=== PATIENT | female | born 1980 | race Caucasian/White ===

== ENCOUNTER 2021-02-18 19:59 | Emergency (ER) | payer OTHER ==
[~2021-02-18] VITALS: Ht 170.2 cm; Wt 90.1 kg
[2021-02-18] MEDS ORDERED: LIDOCAINE 1% MDV 20ML VIAL SC ONE (23:35)
[2021-02-19] MEDS ORDERED: BOOSTRIX/ADACEL VACCINE (DIPHTH/PERTUSS/ACELL/TETANUS) 0.5ML SYR IM ONE (00:40)
[2021-02-19 00:56] VITALS: BP 146/73
== END 2021-02-19 01:07 | disposition home or self-care (01) ==
LOC: M ED 19:59
DX: S61.211A Laceration without foreign body of left index finger without damage to nail, initial encounter (principal); W26.8XXA Contact with other sharp object(s), not elsewhere classified, initial encounter; Y92.098 Other place in other non-institutional residence as the place of occurrence of the external cause; Y93.G1 Activity, food preparation and clean up; Y99.8 Other external cause status; Z87.891 Personal history of nicotine dependence

== ENCOUNTER → 2022-12-14 | Outpatient (CLI) | payer OTHER | LOC: M RAD 09:34 | PROVIDERS: ATTEND Obstetrics & Gynecology | DX: N94.6 Dysmenorrhea, unspecified (principal) ==

== ENCOUNTER 2023-02-15 06:03 | Observation (INO) | payer OTHER ==
[~2023-02-15] VITALS: Ht 170.2 cm; Wt 85.2 kg
[~2023-02-15 06:03] MED LIST: GABAPENTIN 300 MG CAP PO ONE; IRON1TAB2 PO; VITMTA PO; ceFAZolin SOD 2 GM in IV 1 EA IV ONE
[2023-02-15] MEDS ORDERED: LR 1,000 ML IV SCH (06:30)
[2023-02-15 06:52] LABS: HEMATOCRIT 38.6 % (36.0-47.0); HEMOGLOBIN 12.2 g/dl (12.0-15.5); MEAN CORPUSCULAR HEMOGLOBIN 22.7 pg (27.0-33.0); MEAN CORPUSCULAR HGB CONC 31.6 g/dl (32.0-36.5); MEAN CORPUSCULAR VOLUME 71.9 fl (80.0-96.0); PLATELET COUNT, AUTOMATED 335 10^3/uL (150-450); RED BLOOD COUNT 5.37 10^6/uL (4.00-5.40); WHITE BLOOD COUNT 10.1 10^3/uL (4.0-10.0)
[2023-02-15] MEDS ORDERED: BUPIVACAINE HCL 0.25% 30ML VIAL As Ordered ONE (07:16)
[2023-02-15] MEDS ORDERED: fentaNYL 250 MCG/5 ML INJECTION As Ordered ONE (07:17)
[2023-02-15] MEDS ORDERED: LIDOCAINE 2% 100MG/5ML SDV (FOR ANES.) As Ordered ONE (07:17)
[2023-02-15] MEDS ORDERED: propofoL 200 MG/20 ML VIAL As Ordered ONE (07:17)
[2023-02-15] MEDS ORDERED: MIDAZOLAM INJ 2MG/2ML VIAL As Ordered ONE (07:17)
[2023-02-15] MEDS ORDERED: ROCURONIUM BROMIDE 50MG/5ML VIAL As Ordered ONE ×2 (07:17→08:23)
[2023-02-15 07:20] LABS: ALBUMIN 4.1 G/DL (3.2-5.2); ALKALINE PHOSPHATASE 40 U/L (46-116); ALT/SGPT 11 U/L (7.0-40); AST/SGOT 14 U/L (<34); BILIRUBIN,TOTAL 0.8 MG/DL (0.3-1.2); BLOOD UREA NITROGEN 8 MG/DL (9-23); CALCIUM LEVEL 9.5 MG/DL (8.5-10.1); CARBON DIOXIDE LEVEL 24 MMOL/L (20-31); CHLORIDE LEVEL 106 MMOL/L (98-107); CREATININE FOR GFR 0.56 MG/DL (0.55-1.30); GLOMERULAR FILTRATION RATE > 60.0 (>58); GLUCOSE, FASTING 96 MG/DL (60-100); POTASSIUM SERUM 4.5 MMOL/L (3.5-5.1); SODIUM LEVEL 140 MMOL/L (136-145); TOTAL PROTEIN 7.4 G/DL (5.7-8.2)
[2023-02-15 07:35] LABS: HCG, SERUM QUALITATIVE NEGATIVE (NEGATIVE)
[2023-02-15] MEDS ORDERED: ESMOLOL INJ 100MG/10ML VIAL As Ordered ONE ×2 (07:45→07:48)
[2023-02-15] MEDS ORDERED: METOCLOPRAMIDE INJ 10MG/2ML VIAL As Ordered ONE (08:16)
[2023-02-15] MEDS ORDERED: ONDANSETRON 4MG 2ML VIAL As Ordered ONE (08:16)
[2023-02-15] MEDS ORDERED: KETOROLAC 60MG 2ML VIAL As Ordered ONE (08:16)
[2023-02-15] MEDS ORDERED: ACETAMINOPHEN 1000MG 100ML IV BAG As Ordered ONE (08:16)
[2023-02-15] MEDS ORDERED: SUGAMMADEX SODIUM 500 MG/5 ML VIAL (BRIDION) As Ordered ONE (08:23)
[2023-02-15] MEDS ORDERED: HYDROmorphone HCL 2MG/ML 1ML VIAL As Ordered ONE (09:12)
[2023-02-15] MEDS ORDERED: DESFLURANE 240 ML INHALANT As Ordered ONE (10:06)
[2023-02-15] MEDS ORDERED: diphenhydrAMINE 50MG/ML VIAL As Ordered ONE (10:31)
[2023-02-15] MEDS ORDERED: ONDANSETRON 4MG 2ML VIAL IV PRN (10:50)
[2023-02-15] MEDS: fentaNYL 100 MCG/2 ML INJECTION IV PRN ×2 (11:06→11:16)
[2023-02-15] MEDS: oxyCODONE 5MG TAB PO PRN ×2 (11:16→11:47)
[2023-02-15 13:00] VITALS: BP 104/70
[2023-02-15 14:00] VITALS: BP 110/74
[2023-02-15] MEDS ORDERED: oxyCODONE 5MG TAB PO PRN (14:50)
[2023-02-15] MEDS ORDERED: ONDANSETRON 4MG TAB PO PRN (14:50)
[2023-02-15] MEDS: KETOROLAC 30 MG/ML 1ML VIAL IV SCH (17:19)
[2023-02-15 17:47] LABS: HEPATITIS C VIRUS ABY INDEX 0.1 INDEX (<0.8)
[2023-02-15 18:00] VITALS: BP 102/70
[2023-02-15] MEDS: ACETAMINOPHEN 500 MG TAB PO SCH (21:31)
[2023-02-15 21:32] VITALS: BP 108/59
[2023-02-16] MEDS: KETOROLAC 30 MG/ML 1ML VIAL IV SCH ×2 (02:06→10:30)
[2023-02-16 02:24] VITALS: BP 106/61
[2023-02-16] MEDS: ACETAMINOPHEN 500 MG TAB PO SCH (05:43)
[2023-02-16 06:06] VITALS: BP 120/70
== END 2023-02-16 11:45 | disposition home or self-care (01) ==
LOC: M SDC 06:03 → M MS5PR 11:55 → M SDC 02-16 06:02 → M MS5PR 02-16 06:03
PROVIDERS: ADMIT Obstetrics & Gynecology; ATTEND Obstetrics & Gynecology
DX: D25.9 Leiomyoma of uterus, unspecified (principal); N80.03 Adenomyosis of the uterus; N88.8 Other specified noninflammatory disorders of cervix uteri; Z53.31 Laparoscopic surgical procedure converted to open procedure; N99.71 Accidental puncture and laceration of a genitourinary system organ or structure during a genitourinary system procedure; N32.89 Other specified disorders of bladder; N93.9 Abnormal uterine and vaginal bleeding, unspecified; R10.2 Pelvic and perineal pain
CPT/HCPCS: 36415; 58150; 80053; 84703; 85027; 86803; 86850; 86900; 86901; 88307; 96374; 96376; J0131; J0690; J1100; J1170; J1200; J1885; J2250; J2405; J2765; J3010; S0020